=== PATIENT | female | born 1950 | race African-American/Black ===

== ENCOUNTER 2018-04-23 10:52 | Emergency (ER) | payer OTHER ==
[~2018-04-23] VITALS: Ht 165.1 cm; Wt 73.9 kg
[~2018-04-23 10:52] MED LIST: ACET-787 PO; BEN10 PO; COZ50 PO; HYD2.5O TP; HYDR-133 PO; LEVO500T6 PO; LOSA50TA66 PO; METR500T1 PO; ONDA-121 PO
[2018-04-23 11:05] VITALS: BP 169/76
[2018-04-23] MEDS ORDERED: DEXAMETHASONE 10 MG/ML VIAL IM ONE (11:40)
[2018-04-23 13:20] VITALS: BP 135/63
== END 2018-04-23 13:20 | disposition home or self-care (01) ==
LOC: MED 10:52
DX: M84.459A Pathological fracture, hip, unspecified, initial encounter for fracture (principal); I10 Essential (primary) hypertension; Z88.5 Allergy status to narcotic agent; Z79.899 Other long term (current) drug therapy
CPT/HCPCS: 73502; 96372; 99283; J1100; Q0092

== ENCOUNTER 2018-04-25 12:32 | Outpatient (CLI) | payer OTHER | END 2018-04-25 21:11 | disposition home or self-care (01) | LOC: MRD 12:32 | PROVIDERS: ATTEND Internal Medicine Geriatric Medicine | DX: M47.817 Spondylosis without myelopathy or radiculopathy, lumbosacral region (principal); M48.07 Spinal stenosis, lumbosacral region; I10 Essential (primary) hypertension | CPT/HCPCS: 72110 ==

== ENCOUNTER 2018-12-08 10:52 | Outpatient (CLI) | payer OTHER ==
[~2018-12-08 10:52] MED LIST changes: -ONDA-121 PO; +ONDA-24 PO
[2018-12-08 12:12] LABS: BASOPHILS # (AUTO) 0.1 K/uL (0.00-0.22); EOSINOPHILS # (AUTO) 0.2 K/uL (0-0.4); EOSINOPHILS % (AUTO) 4.1 % (0.0-4.0); HEMATOCRIT 34.4 % (36-48); HEMOGLOBIN 11.3 g/dL (12.0-16.0); LYMPHOCYTES # (AUTO) 2.4 K/uL (2.5-16.5); LYMPHOCYTES % (AUTO) 46.7 % (20.5-51.1); MEAN CORPUSCULAR HEMOGLOBIN 28 pg (27-31); MEAN CORPUSCULAR HGB CONC 33 g/dL (33-37); MEAN CORPUSCULAR VOLUME 83.4 fL (80-94); MONOCYTES # (AUTO) 0.3 K/uL (0.8-1.0); MONOCYTES % (AUTO) 6.1 % (1.7-9.3); NEUTROPHILS # (AUTO) 2.2 K/uL (1.8-7.7); NEUTROPHILS % (AUTO) 42.1 % (42.2-75.2); PLATELET COUNT (AUTO) 255 K/uL (140-450); RED BLOOD CELL COUNT(AUTO) 4.12 MIL/uL (4.20-5.40); WHITE BLOOD COUNT (AUTO) 5.2 K/uL (4.8-10.8)
[2018-12-08 12:30] LABS: APPEARANCE,URINE CLEAR (CLEAR); BILIRUBIN,URINE NEGATIVE (NEGATIVE); BLOOD, URINE NEGATIVE (NEGATIVE); COLOR,URINE YELLOW (YELLOW); LEUKOCYTE ESTERASE ,URINE NEGATIVE (NEGATIVE); NITRITE, URINE NEGATIVE (NEGATIVE); PH,URINE 6.5 (5.0-9.0); UGLUCOSE TRACE (NEGATIVE)
[2018-12-08 12:40] LABS: PROTHROMBIN TIME 10.3 secs (10.8-13.4)
[2018-12-08 12:42] LABS: ALBUMIN 3.9 g/dL (3.4-5.0); ANION GAP 8.2 (8-16); CARBON DIOXIDE 32.5 mmol/L (21-32); CREATININE 0.9 mg/dL (0.6-1.3); POTASSIUM 3.7 mmol/L (3.5-5.1); TOTAL BILIRUBIN 0.4 mg/dL (0.0-1.0)
== END 2018-12-08 19:44 | disposition home or self-care (01) ==
LOC: MLB 10:52
PROVIDERS: ATTEND Internal Medicine Geriatric Medicine
DX: Z01.818 Encounter for other preprocedural examination (principal); I70.0 Atherosclerosis of aorta; Z90.49 Acquired absence of other specified parts of digestive tract
CPT/HCPCS: 36415; 71046; 76700; 80053; 81003; 82306; 85025; 85610; 85730

== ENCOUNTER 2019-02-07 07:57 | Outpatient (CLI) | payer OTHER, MEDICARE ==
[~2019-02-07 07:57] MED LIST changes: -COZ50 PO; +LOSA50TA57 PO
[2019-02-07 10:38] LABS: ANION GAP 13.1 (8-16); CARBON DIOXIDE 29.4 mmol/L (21-32); CREATININE 0.8 mg/dL (0.6-1.3); POTASSIUM 3.5 mmol/L (3.5-5.1)
[2019-02-07 10:43] LABS: APPEARANCE,URINE CLEAR (CLEAR); BILIRUBIN,URINE NEGATIVE (NEGATIVE); BLOOD, URINE NEGATIVE (NEGATIVE); COLOR,URINE YELLOW (YELLOW); LEUKOCYTE ESTERASE ,URINE NEGATIVE (NEGATIVE); NITRITE, URINE NEGATIVE (NEGATIVE); UGLUCOSE NEGATIVE (NEGATIVE)
[2019-02-07 11:01] LABS: HEMATOCRIT 35.7 % (36-48); HEMOGLOBIN 11.6 g/dL (12.0-16.0); MEAN CORPUSCULAR HEMOGLOBIN 27 pg (27-31); MEAN CORPUSCULAR HGB CONC 32 g/dL (33-37); MEAN CORPUSCULAR VOLUME 84.1 fL (80-94); PLATELET COUNT (AUTO) 269 K/uL (140-450); RED BLOOD CELL COUNT(AUTO) 4.25 MIL/uL (4.20-5.40); RED CELL DISTRIBUTION WIDTH 13.2 % (11.6-13.7); WHITE BLOOD COUNT (AUTO) 5.2 K/uL (4.8-10.8)
[2019-02-07 12:50] LABS: LYMPHOCYTES % (MANUAL) 50 % (20-46); MONOCYTES % (MANUAL) 6 % (5-12)
== END 2019-02-07 20:53 | disposition home or self-care (01) ==
LOC: MLB 07:57
DX: M16.52 Unilateral post-traumatic osteoarthritis, left hip (principal); I10 Essential (primary) hypertension; Z79.899 Other long term (current) drug therapy
CPT/HCPCS: 36415; 80048; 81003; 82040; 82306; 83036; 85025; 87086